=== PATIENT | female | born 1995 | race Two or more races ===

== ENCOUNTER 2021-11-12 13:55 | Emergency (ER) | payer OTHER ==
[~2021-11-12] VITALS: Ht 162.6 cm; Wt 47.6 kg
== END 2021-11-12 19:22 | disposition home or self-care (01) ==
LOC: ER 13:55
DX: O20.9 Hemorrhage in early pregnancy, unspecified (principal); Z3A.01 Less than 8 weeks gestation of pregnancy

== ENCOUNTER 2022-05-03 21:13 | Inpatient (IN) | payer OTHER ==
[~2022-05-03] VITALS: Ht 162.6 cm; Wt 55.3 kg
== END 2022-05-06 11:46 | disposition home or self-care (01) | DRG 807 ==
LOC: OB/GYN 21:13 → LDR 21:13 → OB/GYN 05-04 03:05
PROVIDERS: ADMIT Obstetrics & Gynecology; ATTEND Obstetrics & Gynecology
PROC: 4A1HXCZ Monitoring of Products of Conception, Cardiac Rate, External Approach (ICD-10-PCS; 2022-05-03)
PROC: 10E0XZZ Delivery of Products of Conception, External Approach (ICD-10-PCS; principal; 2022-05-04)
PROC: 0UQG7ZZ Repair Vagina, Via Natural or Artificial Opening (ICD-10-PCS; 2022-05-04)
DX: O71.4 Obstetric high vaginal laceration alone (principal); Z37.0 Single live birth; Z3A.38 38 weeks gestation of pregnancy; Z20.822 Contact with and (suspected) exposure to COVID-19